=== PATIENT | female | born 1945 | race Caucasian/White ===

== ENCOUNTER 2022-04-27 23:14 | Inpatient (IN) | payer MEDICARE, OTHER ==
[~2022-04-27] VITALS: Ht 152.4 cm; Wt 61.7 kg
[2022-04-27] MEDS ORDERED: CLONIDINE HCL 0.1 MG TABLET PO ONE (23:30)
--- NOTE | 2022-04-27 23:39 | NUR ---
[facility] 5150 and a sitter is needed. She states no sitter is availabe and that ER must watch pt.
--- NOTE | 2022-04-27 23:39 | NUR ---
Dr. Potter at bedside. pt here on a 5150 dts and gravely diabled.
[2022-04-27] MEDS ORDERED: CLONIDINE HCL 0.1 MG TABLET ONE (23:42)
[2022-04-27 23:44] LABS: HEMATOCRIT 35.6 % (31.2-41.9); MEAN CORPUSCULAR VOLUME 87.7 fL (75.5-95.3); PLATELET COUNT (AUTO) 158 K/uL (179-408)
--- NOTE | 2022-04-27 23:44 | NUR ---
pt taken to cat scan.
[2022-04-27 23:56] LABS: CREATININE 1.2 mg/dL (0.6-1.3); POTASSIUM 3.1 mmol/L (3.5-5.1)
--- NOTE | 2022-04-27 23:59 | NUR ---
pt returned from cat scan.
[2022-04-28 00:09] LABS: THYROID STIMULATING HORMONE 3.393 mIU/mL (0.358-3.740)
[2022-04-28 00:27] LABS: BILIRUBIN,DIRECT 0.2 mg/dL (0.0-0.2); BILIRUBIN,TOTAL 0.7 mg/dL (0.2-1.0); MAGNESIUM 2.2 mg/dL (1.8-2.4); TOTAL PROTEIN, SERUM 6.9 g/dL (6.4-8.2)
[2022-04-28] MEDS ORDERED: POTASSIUM BICARBONATE/CIT AC 25 MEQ TABLET.EFF ONE (00:29)
[2022-04-28] MEDS ORDERED: POTASSIUM BICARBONATE/CIT AC 25 MEQ TABLET.EFF PO ONE (00:30)
--- NOTE | 2022-04-28 00:36 | NUR ---
Ananth Morales pt's son called from [phone] called update given.
[2022-04-28] MEDS ORDERED: CYANOCOBALAMIN 1000 MCG/ML VIAL IM ONE (00:45)
[2022-04-28] MEDS ORDERED: CYANOCOBALAMIN 1000 MCG/ML VIAL ONE (01:02)
[2022-04-28] MEDS ORDERED: CLONIDINE HCL 0.1 MG TABLET PO ONE (01:15)
[2022-04-28] MEDS ORDERED: CLONIDINE HCL 0.1 MG TABLET ONE (01:16)
--- NOTE | 2022-04-28 01:32 | NUR ---
pt contiues on a 5150, no sitter available per the warehouser Ronald Rn in er must be 1:1 for pt.
--- NOTE | 2022-04-28 02:12 | NUR ---
pt is now medically clear for admission to mental health unit.
--- NOTE | 2022-04-28 02:21 | NUR ---
report given to [employer] to go to room 141b. in mental health.
--- NOTE | 2022-04-28 03:14 | NUR ---
pt transported via w/c to mental health room 141b Lorena Garnett at nurses station to receive the pt. pt with all belongings.
[2022-04-28 03:26] VITALS: BP 137/50
[2022-04-28 04:11] LABS: *BILIRUBIN,URIN NEGATIVE (NEGATIVE); *CLARITY,URINE CLEAR (CLEAR); *COLOR,URINE YELLOW (YELLOW); *KETONES,URINE NEGATIVE (NEGATIVE); *UROBILINOGEN,URINE 0.2 E.U./dl (NORMAL); LEUKOCYTE ESTERASE ,URINE TRACE (NEGATIVE); NITRITE, URINE NEGATIVE (NEGATIVE); PH,URINE 6.5 (5.0-8.0); UGLUCOSE NEGATIVE (NEGATIVE)
[2022-04-28 04:15] LABS: *BLOOD, URINE TRACE (NEGATIVE)
[2022-04-28 04:26] LABS: BACTERIA,URINE NONE SEEN /HPF (NONE SEEN); RBC,URINE NONE SEEN /HPF (0-3); SQUAMOUS EPITHELIAL CELL,UR FEW /HPF (NONE SEEN)
[2022-04-28] MEDS ORDERED: BLOOD SUGAR DIAGNOSTIC 1 EACH STRIP VI ONE (04:30)
[2022-04-28] MEDS ORDERED: MAG HYDROX/AL HYDROX/SIMETH 30 ML LIQUID UDC PO PRN (04:30)
[2022-04-28] MEDS ORDERED: ACETAMINOPHEN 325 MG TABLET PO PRN (04:30)
[2022-04-28] MEDS ORDERED: MAGNESIUM HYDROXIDE 30 ML LIQUID UDC PO PRN (04:30)
--- NOTE | 2022-04-28 06:00 | NUR ---
AT APPROX 0305 ADMITTED 76 YEARS OLD FEMALE TO [facility] ON A 5150 FOR DTS AND GD AFTER SHE WAS MEDICALLY CLEARED BY [facility] ER. PER HOLD PATIENT FAMILY CALLED CRISIS TEAM AFTER THEY OBSERVED THE PATIENT WONDERING OFF ALONE, EATING OUT OF TRASH CANS, EXPERIENCING LONELINESS AND SADNESS. SHE WAS ALSO HAVING MEMORY ISSUES. UPON ADMISSION, PATIENT NOTED A/O X 1 SHE WAS NOTED CALM AND COOPERATIVE WITH ADMISSION PROCESS. PATIENT IS A POOR HISTORIAN, UNABLE TO VERBALIZED WHY SHE IS HERE IN THE UNIT. SHE DENIED SI/HI/VH/AH, SHE IS ABLE TO CFS. SHE REFLECTS WHAT IS WRITTEN ON THE HOLD. PATIENT WAS GIVEN THE BOOKLET FOR PATIENT'S RIGHTS WHEN IN MENTAL HEALTH FACILITY. HER HOLD WILL ON 04/30/22 AT 1830. SHE IS UNDER THE CARE OF DR KIM. WILL CONTINUE TO MONITOR Q15 MIN CHECKS
--- NOTE | 2022-04-28 07:25 | NUR ---
SPOKE WITH PATIENT SON JUNE TONEY. PER SON, PATIENT HAS BEEN MAD AT HIM FOR A WHILE. HE WAS UNAWARE THAT HIS MOTHER BOUGHT BUS TICKETS FOR TOMORROW TO TRAVEL TO [facility]. PATIENT WAS ASKED TO FIND OUT ABOUT PATIENT'S MEDICATION REGIMENT AND VACCINATIONS RECORDS. HE STATED HE WILL LOOK FOR THEM. PATIENT SON WAS INFORMED ABOUT HIS MOTHER 5150 HOLD AND GIVEN THE PHONE NUMBER AND VISITING HOURS FOR THE MHU. HE AGREED. WILL CONTINUE TO MONITOR.
[2022-04-28 07:30] VITALS: BP 137/46
[2022-04-28] MEDS: CHOLECALCIFEROL 1,000 UNIT TABLET PO SCH (08:39)
[2022-04-28] MEDS: DIVALPROEX SPRINKLE 125 MG CAP.SPRINK PO SCH ×2 (11:13→17:27)
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
[2022-04-28 16:00] VITALS: BP 122/49
[2022-04-28 19:59] VITALS: BP 132/51
[2022-04-28] MEDS ORDERED: risperiDONE 0.25 MG TABLET PO SCH (21:00)
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
[2022-04-29 07:30] VITALS: BP 178/55
[2022-04-29] MEDS: CHOLECALCIFEROL 1,000 UNIT TABLET PO SCH (09:34)
[2022-04-29] MEDS: DIVALPROEX SPRINKLE 125 MG CAP.SPRINK PO SCH ×2 (13:11→16:14)
--- NOTE | 2022-04-29 15:50 | NUR ---
Gps/Candy Separator Enrobing- Ambulates around w/ front wheel walker, at times noted patient with no walker, encouraged continued use of the front wheel walker. Compliant with her routine medications. Making her simple needs known to the staff.Forgetful, constantly redirected, reoriented to time and place.
[2022-04-29 16:00] VITALS: BP 172/60
--- NOTE | 2022-04-29 17:30 | NUR ---
Gps/Elementary Esl Teacher- Received report from Allen TANG Nurse .
--- NOTE | 2022-04-29 18:00 | NUR ---
Gps/Guide Rail Cleaner- Admitted from ER via wheel chair, alert, oriented x3 . During face to face interview with patient, noted, fidgety, anxious, difficulty focusing during interview. Patient claimed he has not have anything to eat all day, requesting to have food to eat right away. Informed we dont have dinner tray yet for him, orders just put in, offered 2 milks . Addendum: 04/29/22 at 1903 by SHELBI PINTO LVN Error - Charted on a wrong patient.
[2022-04-29 20:50] VITALS: BP 189/70
[2022-04-29] MEDS ORDERED: risperiDONE 0.5 MG TABLET PO SCH (21:00)
[2022-04-29] MEDS ORDERED: risperiDONE 0.25 MG TABLET PO SCH (21:00)
[2022-04-29] MEDS: TEMAZEPAM 7.5 MG CAPSULE PO PRN (21:02)
--- NOTE | 2022-04-30 05:03 | NUR ---
GPS NOTES: Received patient walking in the hallway with NIGHAT, Werner&0x3. Patient pleasant with newspaper writer upon start of the shift. Compliant with medication. No distress noted. Denies any behavioral symptoms. Denies SI. noted with forgetfulness at times. Able to make needs known. Restoril given. Patient slept well. Safety strategies in place. Closely monitoring observed.
[2022-04-30 07:30] VITALS: BP 184/75
[2022-04-30] MEDS: DIVALPROEX SPRINKLE 125 MG CAP.SPRINK PO SCH ×3 (08:36→16:56)
[2022-04-30] MEDS: CHOLECALCIFEROL 1,000 UNIT TABLET PO SCH (08:36)
[2022-04-30] MEDS: AMLODIPINE 10 MG TABLET PO SCH (08:37)
[2022-04-30] MEDS: ASPIRIN EC 81 MG TABLET.DR PO SCH (08:37)
[2022-04-30] MEDS: LISINOPRIL 10 MG TABLET PO SCH (08:37)
[2022-04-30] MEDS: risperiDONE 0.5 MG TABLET PO SCH ×2 (11:00→20:02)
--- NOTE | 2022-04-30 15:19 | NUR ---
Received patient sleeping in his room. A/O X 2 to person, place. Pt. is tearful, preoccupied, anxious " My son is telling everyone here that I'm crazy, and I'll never leave this place. I just want to go back to [place]". "I don't want to talk to him ever again, he just spends my money with expensive cars". Pt. is compliant with medications but does not like to take more than two pills per day. Active listening provided. Fall and safety precautions implemented.
--- NOTE | 2022-04-30 15:57 | NUR ---
EMEKA Initial Discharge Note: [place] resides [place] home [id number] [facility] [place] [id number]. At this time, it is unknown if pt can return home safely. EMEKA will work with family member, Rosanna ([phone]), pt and MD to ensure a safe and proper discharge plan.
--- NOTE | 2022-04-30 16:08 | NUR ---
EMEKA Family Contact: EMEKA spoke to pt's [id number]-qn-loz Rosanna ([phone]) who stated that pt will need a placement upon discharge. Rosanna stated that pt cannot take care of herself and requires help. Rosanna asked the hospital for help in a safe group home. Rosanna stated she is taking care of the pt's dog. Rosanna stated the pt experiences hallucinations and she can no longer help take care of the pt. EMEKA stated this global technical writer will work with the MD to ensure a safe and proper placement. Rosanna was grateful and asked to be informed of the place that pt is accepted to. EMEKA confirmed that pt will absolutely be informed of every detail of discharge prior to discharge.
[2022-04-30 16:36] VITALS: BP 118/50
[2022-04-30] MEDS: ATORVASTATIN 20 MG TABLET PO SCH (20:15)
[2022-04-30 20:17] VITALS: BP 138/52
--- NOTE | 2022-04-30 21:18 | NUR ---
GPS: Received a call from "Ananth Brock" claiming to be the son of the pt. and asking for info/status on pt. Per social workers notes,she's in contact with family member named "Rosanna". Ananth Brock states that Rosanna is not a family member and that he's the one who should be the stamps or coins salesperson for the pt. Pt. was asked if okay to give info to her son Ananth but pt.said not to. "Ananth was instructed to call assigned social services analyst on Tuesday.
--- NOTE | 2022-05-01 06:16 | NUR ---
GPS: Pt.slept 5.45 last night. Denies SI/HI. Re-directed and re-assured prn. Reminded to use fww when ambulating. Needs attended. Will continue to monitor.
[2022-05-01] MEDS ORDERED: AMLO10TA4 PO (07:17)
[2022-05-01] MEDS ORDERED: ASPI81TA31 PO (07:17)
[2022-05-01] MEDS ORDERED: LISI20TA PO (07:23)
[2022-05-01 07:35] VITALS: BP 174/72
[2022-05-01] MEDS: ASPIRIN EC 81 MG TABLET.DR PO SCH (08:37)
[2022-05-01] MEDS: risperiDONE 0.5 MG TABLET PO SCH ×2 (08:37→20:27)
[2022-05-01] MEDS: LISINOPRIL 10 MG TABLET PO SCH (08:37)
[2022-05-01] MEDS: AMLODIPINE 10 MG TABLET PO SCH (08:37)
[2022-05-01] MEDS: DIVALPROEX SPRINKLE 125 MG CAP.SPRINK PO SCH ×3 (08:38→17:20)
[2022-05-01] MEDS: CHOLECALCIFEROL 1,000 UNIT TABLET PO SCH (08:38)
--- NOTE | 2022-05-01 15:25 | NUR ---
Received patient sleeping in his room. A/O X 2 to person, place. Pt. is concerned about medications, thinks that she is taking too many. Pt. states "I don't belong to this place. I just want to go back to [place], where I have I belong, to my paid for house" Pt. is depressed and tearful at times. Pt. is encourage to vent feelings. Fall and safety precautions implemented.
[2022-05-01 16:10] VITALS: BP 122/49
[2022-05-01 19:59] VITALS: BP 150/62
[2022-05-01] MEDS: ATORVASTATIN 20 MG TABLET PO SCH (20:27)
--- NOTE | 2022-05-01 20:30 | NUR ---
Received patient in the day room watching TV. she is noted A/O x 2. Patient is calm and pleasant upon approached. she is able to verbalized feelings. She stated, "I am here because they said that I was walking on the streets and that I was confused". She denied SI/HI/VH/AH she is able to verbally CFS. safety and fall precautions are in place, she is reassured for her safety. V/S stable. Patient was given PO fluids and snacks. will continue to monitor.
[2022-05-02 07:30] VITALS: BP 151/63
[2022-05-02] MEDS: DIVALPROEX SPRINKLE 125 MG CAP.SPRINK PO SCH ×3 (08:24→17:23)
[2022-05-02] MEDS: risperiDONE 0.5 MG TABLET PO SCH ×2 (08:24→20:46)
[2022-05-02] MEDS: CHOLECALCIFEROL 1,000 UNIT TABLET PO SCH (08:24)
[2022-05-02] MEDS: ASPIRIN EC 81 MG TABLET.DR PO SCH (08:24)
[2022-05-02] MEDS: LISINOPRIL 20 MG TABLET PO SCH (08:25)
[2022-05-02] MEDS: AMLODIPINE 10 MG TABLET PO SCH (08:25)
--- NOTE | 2022-05-02 15:22 | NUR ---
Received patient sleeping in his room. A/O X 2 to person, place. Pt. is sociable, pleasant, depressed and tearful at times, forgetful, preoccupied, confused "When I get out of here, I'll go to [place] and live by myself". Pt. is encourage to verbalize concerns. Fall and safety precautions implemented.
[2022-05-02 16:00] VITALS: BP 149/65
[2022-05-02 19:55] VITALS: BP 158/66
--- NOTE | 2022-05-02 20:30 | NUR ---
received patient in the hallway. she is noted A/O x 2. she is able to verbalized her feelings. She is calm and cooperative upon approached. She continue having some delusional thinking that she wanted to go to [facility] because she has a home there. (per son, patient does not have a home in [facility]) V/S are stable. She was given PO fluids and snacks. Patient is reassured for his safety. Safety and fall precautions are in place. will continue to monitor.
[2022-05-02] MEDS: ATORVASTATIN 20 MG TABLET PO SCH (20:46)
--- NOTE | 2022-05-03 06:58 | NUR ---
Patient slept for approx 4.00hrs through the night. She is noted with low mood and blunted affect; however, she denied SI/HI/VH/AH she is complaint with medication regiment diet and care. will continue to monitor.
[2022-05-03 07:40] VITALS: BP 142/61
[2022-05-03] MEDS: risperiDONE 0.5 MG TABLET PO SCH (08:39)
[2022-05-03] MEDS: CHOLECALCIFEROL 1,000 UNIT TABLET PO SCH (08:39)
[2022-05-03] MEDS: AMLODIPINE 10 MG TABLET PO SCH (08:40)
[2022-05-03] MEDS: DIVALPROEX SPRINKLE 125 MG CAP.SPRINK PO SCH ×3 (08:40→17:28)
[2022-05-03] MEDS: LISINOPRIL 20 MG TABLET PO SCH (08:41)
[2022-05-03] MEDS: ASPIRIN EC 81 MG TABLET.DR PO SCH (08:41)
--- NOTE | 2022-05-03 14:50 | NUR ---
Received patient is AAO x2-3 , patient is compliant with all AM medication needed prompting encouragement in initiating simple tasks, attends group therapy ,encourage to verbalize her feeling and needs ,will continue close monitoring.
[2022-05-03 16:13] VITALS: BP 123/53
[2022-05-03 19:58] VITALS: BP 134/60
[2022-05-03] MEDS ORDERED: risperiDONE 1 MG TABLET PO SCH (21:00)
[2022-05-03] MEDS: ATORVASTATIN 20 MG TABLET PO SCH (21:20)
--- NOTE | 2022-05-03 21:58 | NUR ---
Patient received in the activities room interacting with her peers. she is noted A/O x 2. she is able to verbalize her feelings. She is calm and cooperative upon approached. She continue having some delusional thinking. Patient complaint with medication/care/diet. Patient was given PO fluids and snacks. Patient is reassured for his safety. Safety and fall precautions are in place. Bed in lowest position, bed locked, and alarm on while in bed.
[2022-05-04 07:30] VITALS: BP 165/55
[2022-05-04 07:54] LABS: HEMATOCRIT 36.2 % (31.2-41.9); MEAN CORPUSCULAR HEMOGLOBIN 29.3 uug (24.7-32.8); MEAN CORPUSCULAR VOLUME 87.4 fL (75.5-95.3); PLATELET COUNT (AUTO) 138 K/uL (179-408)
[2022-05-04 08:09] LABS: BILIRUBIN,TOTAL 0.7 mg/dL (0.2-1.0); CREATININE 0.9 mg/dL (0.6-1.3); POTASSIUM 4.3 mmol/L (3.5-5.1); TOTAL PROTEIN, SERUM 6.4 g/dL (6.4-8.2)
[2022-05-04] MEDS: CHOLECALCIFEROL 1,000 UNIT TABLET PO SCH (08:36)
[2022-05-04] MEDS: LISINOPRIL 20 MG TABLET PO SCH (08:36)
[2022-05-04] MEDS: risperiDONE 0.5 MG TABLET PO SCH (08:37)
[2022-05-04] MEDS: ASPIRIN EC 81 MG TABLET.DR PO SCH (08:37)
[2022-05-04] MEDS: AMLODIPINE 10 MG TABLET PO SCH (08:38)
[2022-05-04] MEDS: DIVALPROEX SPRINKLE 125 MG CAP.SPRINK PO SCH ×3 (08:38→16:15)
--- NOTE | 2022-05-04 11:03 | NUR ---
PT [facility] 14 DAY HOLD HEARING DONE TODAY AND WITH APPROVE PROBABLE CAUSE OF GRAVE DISABILITY ONLY. PT DID NOT PARTICIPATE WITH THE HEARING.
[2022-05-04 15:18] VITALS: BP 119/64
[2022-05-04 19:52] VITALS: BP 146/61
[2022-05-04] MEDS: ATORVASTATIN 20 MG TABLET PO SCH (20:59)
[2022-05-04] MEDS: risperiDONE 1 MG TABLET PO SCH (21:00)
[2022-05-05 07:30] VITALS: BP_SYST 135; BP_DIAS 52; BP_DIAS 82
[2022-05-05] MEDS: CHOLECALCIFEROL 1,000 UNIT TABLET PO SCH (08:48)
[2022-05-05] MEDS: AMLODIPINE 10 MG TABLET PO SCH (08:48)
[2022-05-05] MEDS: ASPIRIN EC 81 MG TABLET.DR PO SCH (08:49)
[2022-05-05] MEDS: DIVALPROEX SPRINKLE 125 MG CAP.SPRINK PO SCH ×3 (08:49→16:51)
[2022-05-05] MEDS: risperiDONE 0.5 MG TABLET PO SCH (08:49)
[2022-05-05] MEDS: LISINOPRIL 20 MG TABLET PO SCH (08:49)
[2022-05-05 16:00] VITALS: BP 133/55
--- NOTE | 2022-05-05 16:24 | NUR ---
Social Work Coordination of Care: Cell Reliner faxed patient's referral packet including: History and Physical, Consultation, Progress Notes, Medication List and Labs to the following facilities for review and possible [facility] placement: [facility] ([phone])
[2022-05-05 20:00] VITALS: BP 155/75
[2022-05-05] MEDS: risperiDONE 1 MG TABLET PO SCH (20:13)
[2022-05-05] MEDS: ATORVASTATIN 20 MG TABLET PO SCH (20:13)
[2022-05-05] MEDS: TEMAZEPAM 7.5 MG CAPSULE PO PRN (20:45)
--- NOTE | 2022-05-06 04:15 | NUR ---
Received patient in dayroom, watching tv upon start of the shift. Patient is to be more confuse and delusional, talking to herself. Re-orient patient to reality, re-directable. Med compliant. Restoril given, effective. patient slept well.
[2022-05-06 07:50] VITALS: BP 148/61
[2022-05-06] MEDS: ASPIRIN EC 81 MG TABLET.DR PO SCH (08:45)
[2022-05-06] MEDS: risperiDONE 0.5 MG TABLET PO SCH (08:47)
[2022-05-06] MEDS: DIVALPROEX SPRINKLE 125 MG CAP.SPRINK PO SCH ×3 (08:47→16:35)
[2022-05-06] MEDS: LISINOPRIL 20 MG TABLET PO SCH (08:48)
[2022-05-06] MEDS: CHOLECALCIFEROL 1,000 UNIT TABLET PO SCH (08:48)
[2022-05-06] MEDS: AMLODIPINE 10 MG TABLET PO SCH (08:51)
[2022-05-06 16:24] VITALS: BP 131/55
--- NOTE | 2022-05-06 20:00 | NUR ---
RECEIVED PATIENT IN THE DAY ROOM WATCHING TV. SHE IS A/O X 1. NOTED HYPERVERBAL AND SUSPICIOUS UPON APPROACHED, SHE STATED, "I HAVE BEEN PRAYING BECAUSE THERE ARE BAD PEOPLE". "DON'T WANT TO TALK TO NO ONE BUT MICKEY. SHE IS GOOD TO ME. NOT MY SON". PATIENT WAS GIVEN A REALITY CHECK. SHE WAS ENCOURAGE TO VERBALIZED HER FEELINGS. SHE IS REASSURED FOR HER SAFETY. SAFETY AND FALL PRECAUTION IN PLACE. HER V/S ARE STABLE, PT IN NO DISTRESS. PO FLUIDS AND SNACKS WERE GIVEN, WILL CONTINUE TO MONITOR.
[2022-05-06] MEDS: ATORVASTATIN 20 MG TABLET PO SCH (20:37)
[2022-05-06] MEDS: risperiDONE 1 MG TABLET PO SCH (20:37)
--- NOTE | 2022-05-06 21:45 | NUR ---
PATIENT NOTED STANDING IN THE HALLWAY STARING BLANKLY INTO SPACE. SHE WAS TEARFUL, ANXIOUS AND SUSPICIOUS UPON APPROACHED. SHE STATED, "I WANT TO STAY HERE (IN THE HALLWAY). I CAN'T GO IN MY ROOM. HE IS THERE". PATIENT WAS REASSURED FOR HER SAFETY; HOWEVER, SHE REFUSED TO GO INTO HER ROOM. SHE WAS OFFERED TO SIT IN A ARIELA CHAIR NEAR THE NURSING STATION AND SHE AGREED. SHE WAS OFFERED A PO PRN MEDICATION FOR ANXIETY BUT SHE REFUSED. SILL CONTINUE TO MONITOR CLOSELY.
--- NOTE | 2022-05-06 23:00 | NUR ---
PATIENT NOTED SLEEPING IN THE ANDREY CHAIR, SHE WAS ASKED TO GO TO HER BED. SHE INITIALLY REFUSED, SHE STATED, "I WANT OT STAY HERE, I AM GOOD, BESIDE IT WILL BE MORNING SOON". PATIENT WAS TOLD THAT IT WAS ONLY 11AM AND THAT SHE NEEDED TO SLEEP IN HER BED. SHE AGREED AND SHE WAS WALKED TO HER BED. WILL CONTINUE TO MONITOR
--- NOTE | 2022-05-07 06:35 | NUR ---
Pt slept for approx 7.15 hrs through the night.
[2022-05-07 07:30] VITALS: BP 142/50
[2022-05-07] MEDS: risperiDONE 0.5 MG TABLET PO SCH (08:39)
[2022-05-07] MEDS: CHOLECALCIFEROL 1,000 UNIT TABLET PO SCH (08:40)
[2022-05-07] MEDS: LISINOPRIL 20 MG TABLET PO SCH (08:41)
[2022-05-07] MEDS: AMLODIPINE 10 MG TABLET PO SCH (08:43)
[2022-05-07] MEDS: ASPIRIN EC 81 MG TABLET.DR PO SCH (08:43)
[2022-05-07] MEDS: DIVALPROEX SPRINKLE 125 MG CAP.SPRINK PO SCH ×3 (08:44→17:00)
[2022-05-07 17:03] VITALS: BP 138/49
[2022-05-07] MEDS: ATORVASTATIN 20 MG TABLET PO SCH (20:09)
[2022-05-07] MEDS: risperiDONE 1 MG TABLET PO SCH (20:10)
[2022-05-07 20:48] VITALS: BP 132/52
[2022-05-07] MEDS: TEMAZEPAM 7.5 MG CAPSULE PO PRN (21:37)
--- NOTE | 2022-05-08 03:46 | NUR ---
GPS NOTES: Received patient in the day room watching tv, A&Ox1. Patient to be pleasant when approached. Caught talking to internal stimuli, re-direct to reality, patient responds positively. Loose association also noted when conversing to patient. Patient forgetful and needs directions to care for self. Patient needs re-assurance to be in a safe environment. Patient is seen caring for other peers. Med complaint. Restoril given, effective. Safety strategies in place. closely monitoring observed.
[2022-05-08 07:51] VITALS: BP 120/57
[2022-05-08] MEDS: ASPIRIN EC 81 MG TABLET.DR PO SCH (08:36)
[2022-05-08] MEDS: CHOLECALCIFEROL 1,000 UNIT TABLET PO SCH (08:36)
[2022-05-08] MEDS: risperiDONE 0.5 MG TABLET PO SCH (08:37)
[2022-05-08] MEDS: AMLODIPINE 10 MG TABLET PO SCH (08:37)
[2022-05-08] MEDS: LISINOPRIL 20 MG TABLET PO SCH ×2 (08:37→22:00)
[2022-05-08] MEDS: DIVALPROEX SPRINKLE 125 MG CAP.SPRINK PO SCH ×3 (08:37→16:27)
--- NOTE | 2022-05-08 14:02 | NUR ---
GPS: Nursing Notes: Thought Disorder: Patient is awake and responding to her, impaired judgment, wandering around the unit aimlessly at times, redirected and reoriented during shift, compliant with her medications, needs prompting to participate in therapeutic groups, following staff directions, forgetful at times, needs prompting with ADL's, unable to formulate a viable plan for self care, disorganized, confused, continue to monitor for safety, continue with treatment plan.
[2022-05-08 16:09] VITALS: BP 138/56
[2022-05-08 19:45] VITALS: BP 147/59
[2022-05-08 20:00] VITALS: BP 147/54
[2022-05-08] MEDS: ATORVASTATIN 20 MG TABLET PO SCH (20:06)
[2022-05-08] MEDS: risperiDONE 1 MG TABLET PO SCH (20:06)
[2022-05-08] MEDS: LORAZEPAM 0.5 MG TABLET PO PRN (21:29)
--- NOTE | 2022-05-08 21:30 | NUR ---
GPS: Pt.was walking in the hallway and having increased anxiety and paranoia. Noted B/P to be high at this time 198/92, HR 112, O2 Sat 98 % R/A. Placed comfortably on a ruiz-chair in front of nurses station for close observation. Denies chest pains,headaches,SOb at this time. Pt.exremely anxious. Re-assured and re-directed frequently. Ativan 0.5mg given PO. Dr. Ballesteros was paged. Awaiting call back.
--- NOTE | 2022-05-08 21:50 | NUR ---
GPS: Dr. Ballesteros called back and was made aware of pt's condition. Orders carried-out. Will continue to monitor. Re-assured frequently.
[2022-05-08] MEDS: METOPROLOL TARTRATE 50 MG TABLET PO SCH (22:00)
--- NOTE | 2022-05-08 23:22 | NUR ---
GPS: Pt. now asleep. Breathing easy and unlabored. B/P at this time is 158/62,HR 72,O2 Sat 98% R/A. EKG results relayed to MD earlier with no new orders. Will continue to monitor.
[2022-05-09] MEDS: TEMAZEPAM 7.5 MG CAPSULE PO PRN (01:03)
--- NOTE | 2022-05-09 06:44 | NUR ---
GPS: Remains asleep at this time. Resp.even and unlabored. Fall precautions observed. Reality re-orientation provided. Will continue to monitor.
[2022-05-09 07:37] VITALS: BP 149/56
[2022-05-09] MEDS: ASPIRIN EC 81 MG TABLET.DR PO SCH (09:17)
[2022-05-09] MEDS: CHOLECALCIFEROL 1,000 UNIT TABLET PO SCH (09:17)
[2022-05-09] MEDS: DIVALPROEX SPRINKLE 125 MG CAP.SPRINK PO SCH ×3 (09:17→16:38)
[2022-05-09] MEDS: risperiDONE 0.5 MG TABLET PO SCH (09:17)
[2022-05-09] MEDS: LISINOPRIL 20 MG TABLET PO SCH (09:18)
[2022-05-09] MEDS: AMLODIPINE 10 MG TABLET PO SCH (09:18)
[2022-05-09] MEDS: METOPROLOL TARTRATE 50 MG TABLET PO SCH ×2 (09:18→20:48)
--- NOTE | 2022-05-09 10:35 | NUR ---
GPS: Nursing Notes: Thought Disorder: Patient is awake and responding to her name, disoriented, confused, disorganized, poor insight, impaired judgment, forgetful, A/Ox1, wandering around the unit aimlessly, unable to formulate a plan for self care, compliant with her medications, following staff directions, stated "How I am going to pay the bills... I don't know..", redirected and reoriented during shift, anxious affect at times, unable to formulate a viable plan for self care, continue to monitor for safety, continue with treatment plan.
[2022-05-09 16:31] VITALS: BP 112/46
[2022-05-09 20:01] VITALS: BP 136/51
[2022-05-09] MEDS: ATORVASTATIN 20 MG TABLET PO SCH (20:47)
[2022-05-09] MEDS: risperiDONE 1 MG TABLET PO SCH (20:48)
[2022-05-09] MEDS: LORAZEPAM 0.5 MG TABLET PO PRN (22:38)
[2022-05-10 08:03] VITALS: BP 142/48
[2022-05-10] MEDS: ASPIRIN EC 81 MG TABLET.DR PO SCH (09:51)
[2022-05-10] MEDS: CHOLECALCIFEROL 1,000 UNIT TABLET PO SCH (09:51)
[2022-05-10] MEDS: risperiDONE 0.5 MG TABLET PO SCH (09:51)
[2022-05-10] MEDS: AMLODIPINE 10 MG TABLET PO SCH (09:52)
[2022-05-10] MEDS: METOPROLOL TARTRATE 50 MG TABLET PO SCH ×2 (09:52→21:17)
[2022-05-10] MEDS: DIVALPROEX SPRINKLE 125 MG CAP.SPRINK PO SCH ×3 (09:53→17:17)
[2022-05-10] MEDS: LISINOPRIL 20 MG TABLET PO SCH (10:00)
[2022-05-10 11:00] LABS: HEMATOCRIT 37.7 % (31.2-41.9); MEAN CORPUSCULAR HEMOGLOBIN 29.2 uug (24.7-32.8); MEAN CORPUSCULAR VOLUME 86.8 fL (75.5-95.3); PLATELET COUNT (AUTO) 138 K/uL (179-408)
[2022-05-10 11:13] LABS: BILIRUBIN,TOTAL 0.9 mg/dL (0.2-1.0); CREATININE 0.9 mg/dL (0.6-1.3); POTASSIUM 4.1 mmol/L (3.5-5.1); TOTAL PROTEIN, SERUM 6.5 g/dL (6.4-8.2)
--- NOTE | 2022-05-10 11:39 | NUR ---
GPS: Nursing Notes: Thought Disorder: Patient is awake and responding to her name, impaired judgment, confused, forgetful, poor insight, cooperative with nursing care, compliant with her medications, redirected and reoriented during shift, continue to monitor for safety, unable to formulate a viable plan for self care, argumentative at times, unsteady and weak gait, needs assistance with ADL's, needs prompting to participate in therapeutic groups, continue with treatment plan.
--- NOTE | 2022-05-10 11:53 | NUR ---
EMEKA Family Contact: EMEKA returned pt's, son's voicemail Ananth ([phone]) and discussed the pt's current status and discharge details to [facility] on the 2021. Ananth is aware and agreeable with the discharge plan.
[2022-05-10 15:36] LABS: *BILIRUBIN,URIN NEGATIVE (NEGATIVE); *BLOOD, URINE NEGATIVE (NEGATIVE); *CLARITY,URINE CLEAR (CLEAR); *COLOR,URINE YELLOW (YELLOW); *KETONES,URINE 1+ (NEGATIVE); LEUKOCYTE ESTERASE ,URINE 1+ (NEGATIVE); NITRITE, URINE NEGATIVE (NEGATIVE); PH,URINE 6.5 (5.0-8.0); UGLUCOSE NEGATIVE (NEGATIVE)
[2022-05-10 16:37] VITALS: BP 131/48
[2022-05-10 16:47] LABS: BACTERIA,URINE FEW /HPF (NONE SEEN); SQUAMOUS EPITHELIAL CELL,UR MODERATE /HPF (NONE SEEN)
[2022-05-10 19:55] VITALS: BP 140/50
[2022-05-10] MEDS: ATORVASTATIN 20 MG TABLET PO SCH (21:15)
[2022-05-10] MEDS: risperiDONE 1 MG TABLET PO SCH (21:15)
[2022-05-10] MEDS: LORAZEPAM 0.5 MG TABLET PO PRN (21:41)
[2022-05-10] MEDS: TEMAZEPAM 7.5 MG CAPSULE PO PRN (21:41)
[2022-05-11 07:30] VITALS: BP 137/52
[2022-05-11] MEDS: risperiDONE 0.5 MG TABLET PO SCH (09:28)
[2022-05-11] MEDS: CHOLECALCIFEROL 1,000 UNIT TABLET PO SCH (09:28)
[2022-05-11] MEDS: DIVALPROEX SPRINKLE 125 MG CAP.SPRINK PO SCH ×3 (09:28→16:39)
[2022-05-11] MEDS: LISINOPRIL 20 MG TABLET PO SCH (09:29)
[2022-05-11] MEDS: AMLODIPINE 10 MG TABLET PO SCH (09:29)
[2022-05-11] MEDS: ASPIRIN EC 81 MG TABLET.DR PO SCH (09:29)
[2022-05-11] MEDS: METOPROLOL TARTRATE 50 MG TABLET PO SCH ×2 (09:29→20:10)
--- NOTE | 2022-05-11 14:30 | NUR ---
GPS: Nursing Notes: Thought Disorder: Patient is awake and responding to her name, confused, disorganized, wandering around the unit aimlessly, internally preoccupied, mumbling and talking to unseen others, sundown behavior, resistant with nursing care, A/Ox1, argumentative at times, believes that she is leaving today, unable to formulate a viable plan for self care, continue with treatment plan.
[2022-05-11 15:47] VITALS: BP 144/49
[2022-05-11] MEDS: LORAZEPAM 0.5 MG TABLET PO PRN ×2 (16:39→23:57)
[2022-05-11] MEDS: risperiDONE 1 MG TABLET PO SCH (20:09)
[2022-05-11] MEDS: ATORVASTATIN 20 MG TABLET PO SCH (20:09)
[2022-05-11 20:17] VITALS: BP 144/55
[2022-05-11] MEDS: TEMAZEPAM 7.5 MG CAPSULE PO PRN (21:55)
[2022-05-12 07:30] VITALS: BP 156/66
[2022-05-12] MEDS: DIVALPROEX SPRINKLE 125 MG CAP.SPRINK PO SCH ×3 (08:42→17:39)
[2022-05-12] MEDS: risperiDONE 0.5 MG TABLET PO SCH (08:42)
[2022-05-12] MEDS: CHOLECALCIFEROL 1,000 UNIT TABLET PO SCH (08:42)
[2022-05-12] MEDS: AMLODIPINE 10 MG TABLET PO SCH (08:42)
[2022-05-12] MEDS: ASPIRIN EC 81 MG TABLET.DR PO SCH (08:43)
[2022-05-12] MEDS: LISINOPRIL 20 MG TABLET PO SCH (08:43)
[2022-05-12] MEDS: METOPROLOL TARTRATE 50 MG TABLET PO SCH ×2 (08:44→20:11)
[2022-05-12 16:44] VITALS: BP 126/56
--- NOTE | 2022-05-12 17:17 | NUR ---
GPS: PT ISOLATIVE, INSIDE THE ROOM, REFUSED ATTENDING GROUP THERAPY. PT SOMEWHAT CONFUSED AND SLEEPY IN THE MORNING PT WAS ENCOURAGED TO EAT BREAKFAST. PT COMPLIANT TO CARE AND MEDICATIONS. UNABLE TO VIABLY PLAN FOR SELF CARE. POOR JUDGMENT AND IMPULSE CONTROL.
[2022-05-12] MEDS: ATORVASTATIN 20 MG TABLET PO SCH (20:04)
[2022-05-12 20:43] VITALS: BP 163/50
[2022-05-12] MEDS ORDERED: risperiDONE 2 MG TABLET PO SCH (21:00)
[2022-05-12] MEDS: TEMAZEPAM 7.5 MG CAPSULE PO PRN (21:17)
--- NOTE | 2022-05-13 06:16 | NUR ---
Received to care last night, isolative in her room, compliant with care. PRN Restoril given for insomnia. Slept well all night. No distress noted.
[2022-05-13 07:30] VITALS: BP 115/46
[2022-05-13] MEDS: LISINOPRIL 20 MG TABLET PO SCH (08:30)
[2022-05-13] MEDS: AMLODIPINE 10 MG TABLET PO SCH (08:31)
[2022-05-13] MEDS: risperiDONE 0.5 MG TABLET PO SCH (08:32)
[2022-05-13 08:33] VITALS: BP 115/46
[2022-05-13] MEDS: DIVALPROEX SPRINKLE 125 MG CAP.SPRINK PO SCH ×2 (08:33→12:55)
[2022-05-13] MEDS: METOPROLOL TARTRATE 50 MG TABLET PO SCH (08:33)
[2022-05-13] MEDS: CHOLECALCIFEROL 1,000 UNIT TABLET PO SCH (08:33)
[2022-05-13] MEDS: ASPIRIN EC 81 MG TABLET.DR PO SCH (08:37)
--- NOTE | 2022-05-13 09:30 | NUR ---
GPS: PT SEEN IN DINING ROOM, HAD BREAKFAST TODAY. ALERT AND ORIENTED TO NAME. PT DENIES PAIN OR DISCOMFORT. PT LOOKS UNSTEADY TODAY AND WAS OFFERED TO USE WHEELCHAIR. PT WILL BE DISCHARGE TODAY TO [facility] AT 1300 VIA AMBULANCE TRANSPORTATION. DENIES SI/HI.
--- NOTE | 2022-05-13 10:32 | NUR ---
EMEKA Discharge Note: Pt will be discharged to [facility] via Ambulance transportation at 1PM ([phone]). EMEKA spoke with admin coordinator, Kalen at the facility who states they are ready to accept the patient today. Pt is aware and agreeable with discharge plans. Pts daughter in law, Rosanna ([phone]) and pts son, Ananth ([phone]) is aware and agreeable with the discharge plan. Pt is alert and oriented x2(name and location), is unable to plan for self-care at this time; however, is willing to accept care at SNF. Pt denies any suicidal or homicidal ideation. Pt will follow-up at the facility with Psychiatrist, Dr. Borges and Cable Tool Operator. Pt presents with calm mood and congruent affect.
--- NOTE | 2022-05-13 10:34 | NUR ---
EMEKA Discharge Note: Pt will be discharged to [facility] [address] [place] [address] via Ambulance transportation at 1PM ([phone]). EMEKA spoke with admin coordinator, Kalen at the facility who states they are ready to accept the patient today. Pt is aware and agreeable with discharge plans. Pts daughter in law, Rosanna ([phone]) and pts son, Ananth ([phone]) is aware and agreeable with the discharge plan. Pt is alert and oriented x2(name and location), is unable to plan for self-care at this time; however, is willing to accept care at SNF. Pt denies any suicidal or homicidal ideation. Pt will follow-up at the facility with Psychiatrist, Dr. Borges and Gunner'S Mate, Dr. Trejo. Pt presents with calm mood and congruent affect.
--- NOTE | 2022-05-13 13:44 | NUR ---
Received orders to discharge this patient to [facility] by [facility] transportation. Pt. denies SI/HI AH/VH, SOB, pain or any discomfort. Patient belongings and valuables were returned to the patient. Patient left the unit at 13:45. Emotional support provided. Fall and safety precautions implemented.
--- NOTE | 2022-05-13 13:47 | NUR ---
GPS: PT DISCHARGE FROM THE FACILITY. MADE A REPORT TO THE SNF, ALL BELONGINGS GIVEN. PT COMPLIANT WITH CARE AND MEDS. DENIES PAIN OR DISCOMFORT. NO AGITATION WITH NOTED. PSYCHIATRIST AND MD MADE AWARE.
--- NOTE | 2022-05-14 15:46 | NUR ---
Clinical Social Work Note: Miguel Quezada from Department of Mental Health ([phone]) contacted SW to gather discharge details for the pt. SW provided details.
== END 2022-05-13 13:30 | DRG 885 ==
LOC: ER 23:23 → GPS 04-28 02:05
PROVIDERS: ADMIT Psychiatry & Neurology Psychosomatic Medicine; ATTEND Nurse Practitioner Family
DX: F25.0 Schizoaffective disorder, bipolar type (principal); F01.50 Vascular dementia, unspecified severity, without behavioral disturbance, psychotic disturbance, mood disturbance, and anxiety; I10 Essential (primary) hypertension; F03.90 Unspecified dementia, unspecified severity, without behavioral disturbance, psychotic disturbance, mood disturbance, and anxiety; E78.5 Hyperlipidemia, unspecified; E87.6 Hypokalemia; F39 Unspecified mood [affective] disorder; Z73.6 Limitation of activities due to disability; R73.03 Prediabetes; F19.90 Other psychoactive substance use, unspecified, uncomplicated; Z20.822 Contact with and (suspected) exposure to COVID-19
CPT/HCPCS: 36415; 70450; 80164; 82533; 83735; 83921; 84443; 85025; 87086; 93005; 97161; J3420